=== PATIENT | female | born 1950 | race Caucasian/White ===

== ENCOUNTER → 2018-09-05 | Outpatient (CLI) | payer MEDICARE, OTHER ==
[~2018-09-05] MED LIST: DILT180C90 PO; DRO400PT PO; LEVO150T72 PO; LISI-346 PO; WAR5 PO
== END ==
LOC: US 01:11
PROVIDERS: ATTEND Nurse Practitioner Family
DX: I51.7 Cardiomegaly (principal); I34.0 Nonrheumatic mitral (valve) insufficiency; I37.1 Nonrheumatic pulmonary valve insufficiency
CPT/HCPCS: 93306

== ENCOUNTER → 2018-09-20 | Outpatient (CLI) | payer MEDICARE, OTHER ==
[~2018-09-20] MED LIST changes: +REGADENOSON 0.4 MG/5 ML SYR ONE
--- NOTE | 2018-09-20 22:21 | RT STRESS TEST REPORT ---
FACILITY: [facility] [place] PATIENT NAME: VALERIA BROOKS : [id number] MR: [id number] V: [id number] EXAM DATE: ORDERING PHYSICIAN: BOBBY NICHOLS TECHNOLOGIST: Nafisa Acquisition Time: 2018-09-20 14:41:01 Total Exercise Time: 00:01:00 Test Indications: Dyspnea Medications: seec nuclear med sheet Protocol: LEXISCAN Max HR: 115 BPM 75% of Pred: 152 BPM Max BP: 123/061 mmHG Max Work Load: 1.0 METS Non-diagnostic EKG portion of exam. Await perfusion scan imaging and interpretation. Confirmed by Craig Garcia ([id number]) on 09/20/2018 10:21:27 PM Referred By: Overread By: Craig Sanchez
--- NOTE | 2018-09-21 09:15 | RADIOLOGY IMAGING REPORT ---
FACILITY: [facility] - [place] PATIENT NAME: Grace Meyrs : 1950 MR: [id number] V: [id number] EXAM DATE: ORDERING PHYSICIAN: BOBBY NICHOLS TECHNOLOGIST: Location: [facility] [place] Patient: Grace Myers : 1950 Visit/Account:[id number] Date of Sevice: 09/20/2018 EXAMINATION: Single isotope SPECT imaging with regadenoson infusion and gated SPECT imaging. DATE OF EXAMINATION: September 20, 2018. DATE OF INTERPRETATION: September 21, 2018. REQUESTING PHYSICIAN: BOBBY NICHOLS. INDICATION: The patient is a 68-year-old female evaluated for dyspnea. PROCEDURE: After informed consent the patient received an intravenous injection of 12.0 mCi of Tc-99 m sestamibi followed at an appropriate time interval by rest imaging. The patient then subsequently received an intravenous infusion of 0.4 mg of regadenoson per protocol without complication. Resting heart rate was 90 bpm with a peak heart rate of 92 bpm. Blood pressure at rest was 108 / 66 and fol lowing infusion was 123 / 61. Baseline EKG demonstrates atrial fibrillation with a left bundle branc h block. There were no EKG changes of ischemia following infusion. Symptoms were nonspecific. The patient then received an intravenous injection of 30.0 mCi of Tc-99m sestamibi followed by stress chanelle ging. RAW DATA: Examination of the summed raw data revealed a good quality study. MYOCARDIAL PERFUSION: The tomographic images demonstrate a mild decrease in myocardial perfusion tra cer uptake in the basal to mid anteroseptal wall seen on both stress and rest images though more prom inent on stress as compared to rest imaging. GATED IMAGES: The gated images demonstrate an ejection fraction 44% with global hypokinesis. IMPRESSION: 1. Abnormal myocardial perfusion scan with a mild partially reversible defect involving the basal to mid anteroseptal wall consistent with ischemia 2. Abnormal myocardial perfusion scan. 3. Abnormal LV systolic function; LVEF 44%. 4. Based on the results of this exam, the patient appears to be at intermediate risk for future cardi ovascular events. Report Dictated By: Carmen Wolf at 09/21/2018 9:07 AM Report E-Signed By: Carmen Wolf at 09/21/2018 9:09 AM WSN:[id number]
== END ==
LOC: NUC 00:32
PROVIDERS: ATTEND Nurse Practitioner Family
DX: R94.39 Abnormal result of other cardiovascular function study (principal)
CPT/HCPCS: 78452; 93017; A9500; J2785